=== PATIENT | female | born 1965 | race Caucasian/White ===

== ENCOUNTER 2020-09-02 00:25 | Emergency (ER) | payer BC ==
[2020-09-02 01:18] LABS: HEMOGLOBIN 14.3 gm/dl (12.3-15.3); RED BLOOD COUNT 4.83 M/UL (4.00-5.10); WHITE BLOOD COUNT 6.6 K/UL (4.5-11.0)
[2020-09-02 01:38] LABS: BUN/CREATININE RATIO 13 (0-10)
[2020-09-02] MEDS ORDERED: ASPIR-TRIN325 MG PO (01:57)
[2020-09-02] MEDS ORDERED: MEDROL4 MG PO (01:57)
[2020-09-02] MEDS ORDERED: K-DUR TAB 20 M20 MEQ PO (01:57)
[2020-09-02] MEDS ORDERED: ZITHROMAX500 MG PO (01:57)
== END 2020-09-02 04:00 | disposition home or self-care (01) ==
LOC: ER1 00:25
PROVIDERS: Physician Assistant
DX: U07.1 COVID-19 (principal); E87.6 Hypokalemia; I10 Essential (primary) hypertension; E03.9 Hypothyroidism, unspecified; Z79.899 Other long term (current) drug therapy; Z88.0 Allergy status to penicillin
CPT/HCPCS: 71045; 80053; 82550; 82553; 83874; 84484; 85025; 93005; 96365; 96375; 99285; J1100; J3480; J7030

== ENCOUNTER 2020-09-03 12:14 | Emergency (ER) | payer BC ==
[~2020-09-03 12:14] MED LIST: ASPIR-TRIN325 MG PO; K-DUR TAB 20 M20 MEQ PO; MEDROL4 MG PO; ZITHROMAX500 MG PO
[2020-09-03 14:30] LABS: HEMOGLOBIN 14.4 gm/dl (12.3-15.3); RED BLOOD COUNT 4.8 M/UL (4.00-5.10)
[2020-09-03 14:31] LABS: WHITE BLOOD COUNT 9.5 K/UL (4.5-11.0)
[2020-09-03 14:56] LABS: BUN/CREATININE RATIO 18 (0-10)
== END 2020-09-03 17:05 | disposition home or self-care (01) ==
LOC: ER1 12:14
PROVIDERS: Physician Assistant Medical
DX: U07.1 COVID-19 (principal); I10 Essential (primary) hypertension; E03.9 Hypothyroidism, unspecified; Z88.0 Allergy status to penicillin
CPT/HCPCS: 71045; 80053; 85025; 93005; 99285; M0239

== ENCOUNTER → 2020-10-18 | Outpatient (CLI) | payer BC | LOC: HEART 5 13:58 | DX: R00.2 Palpitations (principal); I11.9 Hypertensive heart disease without heart failure; I08.8 Other rheumatic multiple valve diseases; R93.1 Abnormal findings on diagnostic imaging of heart and coronary circulation | CPT/HCPCS: 93306 ==

== ENCOUNTER → 2020-12-12 | Outpatient (CLI) | payer BC | LOC: EXRD 15:08 | DX: M79.605 Pain in left leg (principal) | CPT/HCPCS: 93971 ==

== ENCOUNTER → 2021-02-02 | Outpatient (CLI) | payer BC | LOC: EXRD 08:28 | DX: K76.0 Fatty (change of) liver, not elsewhere classified (principal); K76.9 Liver disease, unspecified | CPT/HCPCS: 76700 ==

== ENCOUNTER → 2021-03-09 | Outpatient (CLI) | payer BC | LOC: CT 07:35 | DX: K76.89 Other specified diseases of liver (principal) | CPT/HCPCS: 74160; Q9967 ==

== ENCOUNTER → 2021-08-07 | Outpatient (CLI) | payer BC | LOC: KOH-I 08:09 | DX: K76.0 Fatty (change of) liver, not elsewhere classified (principal); R91.1 Solitary pulmonary nodule | CPT/HCPCS: 71250; 76700 ==

== ENCOUNTER 2021-11-26 11:04 | Emergency (ER) | payer BC | END 2021-11-26 13:56 | disposition home or self-care (01) | LOC: ER1 11:04 | DX: S29.012A Strain of muscle and tendon of back wall of thorax, initial encounter (principal); Z88.0 Allergy status to penicillin; X58.XXXA Exposure to other specified factors, initial encounter | CPT/HCPCS: 71046; 72072; 99283 ==